=== PATIENT | female | born 1985 | race Caucasian/White ===

== ENCOUNTER 2017-04-02 09:06 | Day surgery (SDC) | payer BC ==
[2017-03-28 15:56] VITALS: BMI 25.7
[2017-04-02] MEDS ORDERED: MIDAZOLAM HCL 2 MG/2 ML SINGLE DOSE VIAL ONE (11:33)
--- NOTE | 2017-04-02 11:38 | HP ---
Past Medical History - Primary Care Physician PCP:: Salvador Mcclellan - Admission Chief Complaint: endometrial polyp. menorrhagia History of Present Illness: 31 yo f with hx of EM polyp and heavy menses admitted for hysteroscopy . EM polypectomy. rba discussed History Source: Patient Limitations to Obtaining History: No Limitations - Past Medical History Cardiovascular: Yes: Other (arrythmia,) ...: 0 ...Para: 0 Psych: Yes: Depression - Past Surgical History Hx Myomectomy: No Hx Transabdominal Cerclage: No - Smoking History Smoking history: Never smoked - Alcohol/Substance Use Hx Alcohol Use: Yes (RARE) - Social History Usual Living Arrangement: Yes: With Spouse History of Recent Travel: No Home Medications - Allergies Allergies/Adverse Reactions: Allergies Allergy/AdvReac Type Severity Reaction Status Date / Time No Known Drug Allergies Allergy Verified 04/02/17 09:54 - Home Medications Home Medications: Ambulatory Orders Aripiprazole [Abilify] 10 mg PO DAILY 03/28/17 Dextrin [Fiber] 350 gm PO DAILY 03/28/17 L.acidoph,Paracasei, B.lactis [Probiotic] 1 each PO DAILY 03/28/17 [id number]/Iron Fumarate/FA/Dss [ 19 Tablet] 1 each PO DAILY 03/28/17 Propranolol HCl 10 mg PO DAILY 03/28/17 Quetiapine Fumarate "Xr" [Seroquel Xr -] 150 mg PO HS 03/28/17 Review of Systems - Review of Systems Constitutional: reports: No Symptoms Eyes: reports: No Symptoms HENT: reports: No Symptoms Neck: reports: No Symptoms Cardiovascular: reports: No Symptoms Respiratory: reports: No Symptoms Gastrointestinal: reports: No Symptoms Genitourinary: reports: No Symptoms, Vaginal Bleeding Breasts: reports: No Symptoms Reported Musculoskeletal: reports: No Symptoms Integumentary: reports: No Symptoms Neurological: reports: No Symptoms Endocrine: reports: No Symptoms Hematology/Lymphatic: reports: No Symptoms Physical Exam-MODELING ANALYST Vital Signs: Vital Signs Temperature 98.9 F 04/02/17 09:51 Pulse Rate 78 04/02/17 09:51 Respiratory Rate 20 04/02/17 09:51 Blood Pressure 105/65 04/02/17 09:51 O2 Sat by Pulse Oximetry (%) 99 04/02/17 09:50 Constitutional: Yes: Well Nourished, No Distress, Calm Eyes: Yes: WNL, Conjunctiva Clear, EOM Intact HENT: Yes: WNL, Atraumatic, Normocephalic Neck: Yes: WNL, Supple, Trachea Midline Cardiovascular: Yes: WNL, Regular Rate and Rhythm Respiratory: Yes: WNL, Regular, CTA Bilaterally Gastrointestinal: Yes: WNL ...Rectal Exam: Yes: WNL Renal/: Yes: WNL Vaginal Exam: Yes: Normal Cervix: Yes: Normal Uterus: Yes: Normal Adnexa: Not Palpable: Left, Right Breast(s): Yes: WNL Musculoskeletal: Yes: WNL Extremities: Yes: WNL Edema: No Integumentary: Yes: WNL Neurological: Yes: WNL, Alert, Oriented ...Motor Strength: WNL Psychiatric: Yes: WNL, Alert, Oriented Problem List - Problem (1) Menorrhagia Code(s): N92.0 - EXCESSIVE AND FREQUENT MENSTRUATION WITH REGULAR CYCLE Qualifiers: Menorrahagia type: with regular cycle Qualified Code(s): N92.0 - Excessive and frequent menstruation with regular cycle (2) Endometrial polyp Code(s): N84.0 - POLYP OF CORPUS UTERI Assessment/Plan hysteroscopy D&C, polypectomy, risks of procedure infection, bleeding, uterine scaring, post op complications discussed
[2017-04-02] MEDS ORDERED: PROPOFOL 20 ML ONE ×2 (11:48→11:59)
[2017-04-02] MEDS ORDERED: ONDANSETRON 4 MG/2 ML VIAL ONE (12:05)
[2017-04-02] MEDS ORDERED: DEXAMETHASONE SOD PHOSPHATE 4 MG/1 ML VIAL ONE (12:05)
[2017-04-02] MEDS ORDERED: KETOROLAC TROMETHAMINE 30 MG/1 ML VIAL ONE (12:05)
[2017-04-02] MEDS ORDERED: LIDOCAINE HCL/PF 2% SDV 5ML VIAL ONE (12:05)
[2017-04-02] MEDS ORDERED: IBUPROFEN 600 MG TABLET (FP) PO PRN (12:15)
[2017-04-02] MEDS ORDERED: IBUPROFEN 800 MG/8 ML IJ IVPB PRN (12:15)
[2017-04-02] MEDS ORDERED: ELECTROLYTE-148 SOLN 1,000 ML IV SCH (12:15)
[2017-04-02] MEDS ORDERED: oxyCODONE HCL 5 MG TABLET PO PRN ×2 (12:15→12:35)
[2017-04-02] MEDS ORDERED: ONDANSETRON 4 MG/2 ML VIAL IVPB PRN (12:15)
[2017-04-02] MEDS ORDERED: PROMETHAZINE HCL 25 MG/1 ML VIAL IVPUSH PRN (12:35)
[2017-04-02] MEDS ORDERED: LACTATED RINGERS SOLUTION 1,000 ML IV SCH (12:45)
[2017-04-02 14:37] VITALS: TEMP 97.7
[2017-04-02 15:10] VITALS: BP 104/64; PULSE 72
--- NOTE | 2017-04-03 12:08 | PATH ---
Surgical Pathology Report Patient Name: JETT SHAH [facility]. Rec. #: [id number] /Age/Gender: 1985 (Age: 31) / F Account: [id number] Location: [facility] SURGICAL Taken: 04/02/2017 Received: 04/02/2017 Reported: 04/03/2017 Physicians: Salvador Mcclellan M.D. Specimen(s) Received A: ENDOMETRIAL CURETTINGS B: ENDOMETRIAL POLYP Clinical History Menorrhagia, endometrial polyp Final Diagnosis A. ENDOMETRIUM, CURETTAGE: FRAGMENTS OF PROLIFERATIVE AND FOCALLY DISORDERED PROLIFERATIVE ENDOMETRIUM. FRAGMENTS OF BENIGN ENDOCERVICAL TISSUE. FRAGMENTS OF BENIGN SQUAMOUS EPITHELIUM. B. ENDOMETRIAL POLYP, POLYPECTOMY: ENDOMETRIAL POLYP. BACKGROUND FRAGMENTS OF PROLIFERATIVE ENDOMETRIUM. FRAGMENTS OF BENIGN ENDOCERVICAL TISSUE. Electronically Signed Carlos Mederos M.D. Gross Description A. Received in formalin labeled "endometrial curettings" is a 2.1 x 1.8 x 0.3 cm aggregate of lee-red soft tissue fragments. The formalin is filtered and the specimen is entirely submitted in one cassette. B. Received in formalin labeled "endometrial polyp" is a 1.0 x 0.5 x 0.3 cm pink-lee, polypoid portion of soft tissue admixed with blood tinged mucus. The specimen is entirely submitted in one cassette. /04/02/2017 [facility]04/02/2017
== END 2017-04-02 15:00 | disposition home or self-care (01) ==
LOC: JASU-SURG 09:06
PROVIDERS: ATTEND Obstetrics & Gynecology
PROC: 0UB98ZX Excision of Uterus, Via Natural or Artificial Opening Endoscopic, Diagnostic (ICD-10-PCS; principal; 2017-04-02 10:30)
PROC: 0UDB8ZX Extraction of Endometrium, Via Natural or Artificial Opening Endoscopic, Diagnostic (ICD-10-PCS; 2017-04-02 10:30)
DX: N84.0 Polyp of corpus uteri (principal); N92.0 Excessive and frequent menstruation with regular cycle; D25.9 Leiomyoma of uterus, unspecified
CPT/HCPCS: 84703; 88305-TC; 94760